=== PATIENT | female | born 1960 | race Caucasian/White ===

== ENCOUNTER → 2023-05-29 11:14 | Outpatient (REF) | payer OTHER, SELFPAY | LOC: WDC 11:14 | PROVIDERS: ATTENDING PHYSICIAN Family Medicine | DX: Z12.31 Encounter for screening mammogram for malignant neoplasm of breast (principal) | CPT/HCPCS: 77063; 77067 ==

== ENCOUNTER 2023-11-19 21:23 | Emergency (ER) | payer OTHER, SELFPAY ==
[2023-11-19 21:27] VITALS: BP 120/76
[2023-11-19 21:47] LABS: % Basophils 0.2 % (0-2); % Immature Granulocytes 0.5 % (0-0.5); % Lymphocytes 5.8 % (20.5-51.1); % Monocytes 7.5 % (1.7-9.3); Absolute Immature Granulocytes 0.1 10^3/uL (0-0.05); Absolute Lymphocytes 0.8 10^3/uL (1.2-3.4); Absolute Monocytes 1.1 10^3/uL (0.1-0.6); Absolute Neutrophils 12.5 10^3/uL (1.4-6.5); Hematocrit 32.2 % (37.0-47.0); Hemoglobin 11.7 g/dL (12.0-16.0); Mean Corp Hgb Conc. 36.3 g/dL (33.0-37.0); Mean Corpuscular Hgb 32.1 pg (27.0-31.0); Mean Corpuscular Volume 88.2 fL (81.0-99.0); Mean Platelet Volume 9.4 fL (7.4-10.4); Nucleated Red Blood Cells % 0 %; Platelet Count 156 10^3/uL (130-400); Red Blood Cell Count 3.65 10^6/uL (4.20-5.40); Red Cell Dist. Width 11.8 % (11.5-14.5); White Blood Cell Count 14.5 10^3/uL (4.8-10.8)
[2023-11-19 22:00] LABS: Urine Albumin 1+ (Neg - Trace); Urine Bilirubin Negative (Negative); Urine Character Clear (Clear); Urine Glucose Negative (Negative); Urine Ketone Negative (Negative); Urine Leukocyte Trace (Negative); Urine Nitrite Negative (Negative); Urine Occult Blood 1+ (Negative); Urine Specific Gravity 1.025 (<1.030); Urine Urobilinogen 1+ (Neg - 1+)
[2023-11-19 22:04] LABS: Urine Color Amber
[2023-11-19 22:16] LABS: Urine Bacteria Few (Negative)
[2023-11-19 22:38] LABS: ALT (SGPT) 53 U/L (0-35); AST (SGOT) 48 U/L (14-36); Alkaline Phosphatase 99 U/L (38-126); Blood Urea Nitrogen 22 mg/dl (7-17); Carbon Dioxide 24 mmol/L (22-30); Chloride 99 mmol/L (98-107); Glucose 150 mg/dl (70-99); Potassium 3.9 mmol/L (3.5-5.1); Sodium 130 mmol/L (135-145); Total Bilirubin 1.3 mg/dl (0.2-1.3); Total Protein 6.4 g/dl (6.3-8.2); eGFR > 60.00
[2023-11-19 22:46] VITALS: BP 116/72
[2023-11-20] VITALS: BP 119/74; BMI 21.7
--- NOTE | 2023-11-20 00:01 | ED.GENMED ---
History of Present Illness
General
Chief Complaint: Flank Pain
Source: patient
Exam Limitations: none
Time Seen by Provider: 11/19/23 23:19
History of Present Illness
History of Present Illness:
This is a 63 year old female that comes in with c/o right sided chest pain. States that she just came home from [place] today and when on the plane she started with this right sided lateral chest pain. States that it hurts when she tried to take a
deep breath. States that she has felt achy for a few days and on Monday night she had chills. States that she does feel SOB. Denies any fever, chest pain, abd pain, nausea, vomiting, diarrhea, headache, dizziness, urinary burning.
Past History
Past History
ED Past Medical History: None
ED Past Surgical History: Orthopedic (Left knee surgery)
Social History
Tobacco: Non-smoker
Alcohol: Occasional
Personal:
Living: with family
Review of Systems
Review of Systems
All Other Systems: ROS reviewed and negative except as documented in HPI and ROS
Constitutional: Reports chills; Denies fever
EENT: Reports no symptoms
Respiratory: Reports trouble breathing; Denies cough
Cardiac: Reports no symptoms; Denies chest pain
ABD/GI: Reports no symptoms; Denies abdominal pain, nausea, vomiting or diarrhea
: Reports no symptoms; Denies dysuria, frequency or urgency
Musculoskeletal: Reports no symptoms
Skin: Reports no symptoms
Neurological: Reports no symptoms; Denies dizzy or headache
Psychiatric: Reports no symptoms
Phy Exam
General Physical Exam
General Presentation: mild distress
General age: appears stated age
General Skin: warm and dry
General Habitus: normal
General Mental: alert
General Hydration: appears well hydrated
ENT Exam
ENT Exam: TM's normal, pharynx normal and neck supple
Eye Exam
Eye Exam: EOMI
Cardiovascular Exam
Cardiovascular Exam: regular rate/rhythm, no edema, no murmur and normal peripheral pulses
Pulmonary Exam
Pulmonary Exam: lungs clear, no respiratory distress, no rales, chest non tender, no crackles, no rhonchi, no wheezing and no cough
Gastrointestinal Exam
Gastrointestinal Exam: normal bowel sounds, non tender, soft, no organomegaly, no pulsatile mass, non distended and no cva tenderness
Musculoskeletal Exam
Musculoskeletal Exam: full ROM and no edema
Skin Exam
Skin Exam: normal color, warm/dry, no rash and no petechia
Psychiatric Exam
Psychiatric Exam: normal mood/affect
Course
Orders/Labs/Results
Orders:
Orders
11/19/23 21:31
Electrocardiogram (*1) Urgent
Reason for Study: Shortness of Breath
EKG- Treatment ONCE
11/19/23 21:42
Complete Blood Count/With Diff Urgent
Comprehensive Metabolic Panel Urgent
11/19/23 21:43
CR Chest - 2 Views Urgent
Comment: no injury
Reason For Exam: Right rib pain, worse on inspiration
11/19/23 21:48
Urinalysis Reflex To Culture Urgent
Date Specimen was Collected: 11/19/23
Time Specimen was Collected: 21:31
Urine Microscopic Reflex Cult Urgent
11/20/23 00:07
Acetaminophen [Tylenol] 1,000 mg PO NOW STA
Doxycycline [Vibramycin] 100 mg PO NOW STA
Ibuprofen [Motrin] 600 mg PO NOW STA
Abnormal Lab Results
11/19/23 11/19/23
21:42 21:48
WBC 14.5 H 10^3/uL
(4.8-10.8)
RBC 3.65 L 10^6/uL
(4.20-5.40)
Hgb 11.7 L g/dL
(12.0-16.0)
Hct 32.2 L %
(37.0-47.0)
MCH 32.1 H pg
(27.0-31.0)
Abs Immat Gran (auto) 0.1 H 10^3/uL
(0-0.05)
Absolute Neuts (auto) 12.5 H 10^3/uL
(1.4-6.5)
Absolute Lymphs (auto) 0.8 L 10^3/uL
(1.2-3.4)
Absolute Monos (auto) 1.1 H 10^3/uL
(0.1-0.6)
Neutrophils % 86.0 H %
(42.2-75.2)
Lymphocytes % 5.8 L %
(20.5-51.1)
Sodium 130 L mmol/L
(135-145)
BUN 22 H mg/dl
(7-17)
Glucose 150 H mg/dl
(70-99)
AST 48 H U/L
(14-36)
ALT 53 H U/L
(0-35)
Ur Occult Blood Reflex 1+ A
(Negative)
Leukocyte Esterase Rfl Trace A
(Negative)
Urine RBC 3-6 A /HPF
(0-2)
Urine Bacteria (Reflex) Few A
(Negative)
Urine Albumin (Reflex) 1+ A
(Neg - Trace)
11/19/23 21:42
11/19/23 21:42
Leukocytosis. H/H slightly low. Sodium slightly low. Dehydration. Glucose nonfasting. AST/ALT slightly elevated. Urine negative for infection.
Vital Signs
Initial and Last Documented VS:
Initial Vital Signs
Temp Pulse Resp BP Pulse Ox
99.7 F 86 18 120/76 95
11/19/23 21:27 11/19/23 21:27 11/19/23 21:27 11/19/23 21:27 11/19/23 21:27
Last Documented Vital Signs
Temp Pulse Resp BP Pulse Ox
98.6 F 68 14 119/74 96
11/20/23 00:00 11/20/23 00:00 11/20/23 00:00 11/20/23 00:00 11/20/23 00:00
MDM/Problems Addressed
Differential Diagnosis Includes:
PNA, PE, renal calculus
MDM/Problems Addressed:
This is a 63 year old female that comes in with c/o right lateral chest pain. States that it hurts when she takes a breath. States that she just came home from [place] today. States that she had chill on Monday night and that she feels SOB.
Will get labs, Chest x-ray and urine
back into see patient. Explained that she has a right sided Pneumonia. Will start patient on antibiotics and pain medication. Patient to follow up with the family doctor for recheck. Patient to return with increased shortness of breath or any other
concerns.
Chronic conditions affecting care:
NA
Acute Exacerbation and/or Progression of Chronic Illness:
NA
*Radiology
Radiology exam reviewed: radiology read reviewed (Chest-Patchy parenchymal opacite is present within the right mid to lower lung. most likely representing Pneumonia. There could also be a component of atelectasis. radiographic follow-up is advised
to assess for improvement and exclude underlying neoplasia. Minimal blunting of the lateral and ) and other (Chest cont- posterior right costophrenic angles, suggesting a small right pleural effusion. )
*Pulse Oximetry
Patient hypoxic: no
*EKG
Interpreted by ED Provider?: Yes
Heart Rate: 79
Rhythm: sinus
Homer: normal axis
Interval: normal interval
QRS Pattern: normal QRS
Ischemia: no ischemia
*Operations Director Interpretation
Rate: Operations Director- N/A
*Critical Care Note
Total Time (30-74mins, 75-104mins- exclusive of procedures): Not Applicable
ED Attending Note
-
Portions of this chart may have been created with voice recognition software.� Occasional wrong word or��sound alike� substitutions may have occurred due to the inherent limitations of voice recognition software.
Discharge Plan
Departure
Patient Disposition: Home (Routine Discharge)
Date of Disposition: 11/20/23
Time of Disposition: 00:14
Patient with high blood pressure during this ER visit?: No
Condition: Good
Covid-19: Not Applicable
Discharge Problem:
Pneumonia involving right lung
Instructions: Pneumonia in adults
Prescriptions:
New
doxycycline hyclate 100 mg capsule
100 mg PO BID Qty: 19 0RF
Referrals:
Tiana Davis, DO [Family Provider] - Follow up in 5-7 days
Activity Restrictions/Additional Instructions:
As discussed, your blood work shows that your white blood cell count is elevated. This goes along with your chest x-ray which shows a Pneumonia. You have been given your first dose of antibiotic here and a prescription has been sent to the
Pharmacy. You may also take Tylenol 1000mg every 6 hours and Ibuprofen 600mg every 6 hours with food for pain. Please increase your water intake to 8-8oz glasses daily. Follow up with the family doctor for recheck. You will also need a repeat chest
x-ray after treatment to make sure this has resolved. IF YOU HAVE INCREASED SHORTNESS OF BREATH, OR YOU HAVE ANY OTHER CONCERNS PLEASE RETURN TO THE EMERGENCY ROOM.
Interventions
Interventions:
*Risk Screen - Suicide Last Done: 11/20/23 00:00
*General Assessment Last Done: 11/20/23 00:00
*Neglect/Abuse Screening Last Done: 11/20/23 00:00
ED- Fall Risk Assessment Last Done: 11/20/23 00:00
*ED COVID-19 Vaccine History Last Done: 11/20/23 00:00
*Nursing Disposition Last Done: 11/20/23 00:30
AP-Chwpgv-[id number] Assessment Last Done: 11/20/23 00:00
Discharge Date and Time
Discharge Date/Time: 11/20/23 00:30
Print Language: KOSOVAN
[2023-11-20] MEDS: VIBRAMYCIN 100 MG PO (00:16)
[2023-11-20] MEDS: MOTRIN 600 MG PO (00:16)
[2023-11-20] MEDS: TYLENOL 1000 MG PO (00:16)
== END 2023-11-20 00:30 | disposition home or self-care (01) ==
LOC: EMR 21:23
PROVIDERS: Emergency Medicine; EMERGENCY PHYSICIAN Emergency Medicine; FAMILY PHYSICIAN Family Medicine
DX: J18.9 Pneumonia, unspecified organism (principal); E86.0 Dehydration
CPT/HCPCS: 99283; 71046; 80053; 81003; 81015; 85025; 93005

== ENCOUNTER → 2023-12-18 12:35 | Outpatient (REF) | payer OTHER, SELFPAY | LOC: HWRAD 12:35 | PROVIDERS: ATTENDING PHYSICIAN Nurse Practitioner Family | DX: J18.9 Pneumonia, unspecified organism (principal) | CPT/HCPCS: 71046 ==

== ENCOUNTER → 2024-06-26 08:20 | Outpatient (REF) | payer OTHER, SELFPAY | LOC: WDC 08:20 | PROVIDERS: ATTENDING PHYSICIAN Family Medicine | DX: Z12.31 Encounter for screening mammogram for malignant neoplasm of breast (principal) | CPT/HCPCS: 77063; 77067 ==

== ENCOUNTER 2024-09-04 06:21 | Day surgery (SDC) | payer OTHER, SELFPAY | END 2024-09-04 10:10 | disposition home or self-care (01) | LOC: GI 06:21 | PROVIDERS: ATTENDING PHYSICIAN Internal Medicine Gastroenterology | DX: Z12.11 Encounter for screening for malignant neoplasm of colon (principal); K62.1 Rectal polyp; Z86.0101 Personal history of adenomatous and serrated colon polyps | CPT/HCPCS: 45380; 88305 ==